=== PATIENT | female | born 1940 ===

== ENCOUNTER 2023-07-09 13:34 | Outpatient (POV) | payer MEDICARE, OTHER, SELFPAY ==
--- NOTE | 2023-07-09 14:07 | EXP.PAIN.SOA ---
[facility] Pain Management SOAP Note Subjective:: Patient is a pleasant 83-year-old patient who presents today for telehealth visit. She is at her home for this telehealth visit and she is consented to this audio visit. She is a [facility] patient who does have a intrathecal pump that is filled through [facility]. Patient denies any side effects from this pump. She states that her pain today is a 10 out of 10. Patient states the pain is all at her low back and denies any new trauma or injury. Patient states that her at home refill nurse did come out last month and did do an increase of 10% however she feels like she did not notice any additional relief. Patient denies any injections in the past. Patient's pump is intrathecal morphine. It is morphine 1 mg/mL with a daily dose of 0.1725 mg/day. She denies any side effects from this medication. her Pk has been reviewed and is appropriate. Review of Systems: General: No recent weight changes, no fever, no sleep disturbances Respiratory: No cough, no shortness of air, no recurring pulmonary infections Cardiovascular/peripheral vascular: No chest pain, no palpitations, no edema, no shortness of breath Gastrointestinal: No new onset incontinence, normal bowel movements reported Genitourinary: No new onset incontinence Musculoskeletal: Low back pain Psychiatric: [Normal mood/affect] Neurological: [Denies weakness in extremities], [denies balance issues] Objective:: General: Alert and oriented x3, pleasant and cooperative Lungs: Patient is able to say complete sentences without dyspnea Neurological: Speech clear Assessment:: Degenerative disc disease of lumbar spine, chronic pain syndrome Plan:: I did discuss with the patient that she may benefit from additional intrathecal increase. Risk and benefits were explained to the patient and she would like to proceed forward with this plan of care. I have counseled the patient that we will reach out to [facility] and have them contact her to give a additional 10% increase. I have also discussed with patient that she may benefit from additional injection therapy however that we would have to see her in person in order for evaluation. Patient states that she does have difficulty traveling long distances and does not know if she be able to make it to our location due to her worsening pain. Patient is coming from [place]. I have counseled the patient to contact our office for any additional issues or concerns. This visit did occur from [id number]. Patient has been instructed to contact the clinic with any concerns before the next appointment. Dr. Marks has reviewed this note and agrees with this plan of care. This note was dictated using voice recognition software and make contain errors or omissions. -- It Is medically necessary for this patient to continue to have their intrathecal pump refilled at regular intervals. This patient had an intrathecal pain pump implanted after meeting criteria of chronic intractable pain for greater than 3 months and failing conservative treatments. Patient has committed and been compliant to the treatment plan and all planned follow up care. Since implantation of the intrathecal pain pump, the patient has had decreased pain and been more functional. Oral medications have been reduced including intake of oral opioids. Patient continues to do well with intrathecal therapy with decrease in pain symptoms and increase in functional status. Stopping intrathecal medications can lead to life threatening withdrawal, seizures, cardiac arrest, severe pain, and possible . Pumps that are not refilled at regular intervals can be damages and cause and need for replacement. We continually titrate dose and concentration to optimize pain relief and function. We are limited in concentration for certain drugs to safely deliver medications through the pump and stay within the recommendations from the Polyanalges[employer] Consensus Committee Guidelines. Depending on dose and concentration these pumps may need to be refilled sooner than 3 months as we titrate. [facility] Disclaimer: The information contained in this section may have been updated after the patient was seen, as this information can be updated by other users. Social History (Updated 07/09/23 @ 14:11 by Gricelda Timmons APRN) Smoking Status: Unknown if ever smoked alcohol intake: never current occupational status: other Travel in the last 8 weeks: None
== END 2023-07-09 23:59 | disposition home or self-care (01) ==
LOC: SC.PAIN 13:36
PROVIDERS: Visit Provider Nurse Practitioner Family
DX: M51.36 Other intervertebral disc degeneration, lumbar region (principal); G89.4 Chronic pain syndrome; Z97.8 Presence of other specified devices
CPT/HCPCS: 99441; G2012